=== PATIENT | female | born 1960 | race African-American/Black ===

== ENCOUNTER 2020-10-18 09:23 | Outpatient (CLI) | payer MEDICARE, OTHER ==
[~2020-10-18 09:23] MED LIST: Iopamidol 370 76% 100 ML VIAL ONE
== END 2020-10-18 09:24 | disposition home or self-care (01) ==
LOC: CT 09:23
PROVIDERS: ATTEND Family Medicine
DX: R10.12 Left upper quadrant pain (principal); R10.32 Left lower quadrant pain; R91.1 Solitary pulmonary nodule; M79.605 Pain in left leg; M79.89 Other specified soft tissue disorders
CPT/HCPCS: 71250; 74177; 82565; Q9967

== ENCOUNTER 2023-05-03 12:29 | Emergency (ER) | payer MEDICARE, OTHER ==
[2023-05-03 13:16] LABS: #Basophils Less than 0.03 10x3/uL (0.0-0.2); %Basophils 0.4 % (0.0-1.0); %Eosinophils 0.7 % (0.0-10.0); %Lymphocytes 39.7 % (21.0-51.0); %Monocytes 7.1 % (0.0-10.0); %Neutrophils 51.9 % (42.0-75.0); Hematocrit 47.4 % (36.0-47.0); Hemoglobin 15.3 g/dL (12.0-16.0); Mean Corpuscular HGB CONC 32.3 g/dL (32.0-36.0); Mean Corpuscular Hemoglobin 31.7 pg (27.0-31.0); Mean Corpuscular Volume 98.3 fl (78.0-98.0); Mean Platelet Volume 11.5 fL (7.4-10.4); Platelet Count 234 10x3/uL (130-400); RBC Distribution Width 12.9 % (11.5-14.5); Red Blood Cell (RBC) Count 4.82 mill/uL (4.20-5.40)
[2023-05-03 13:33] LABS: ALT (SGPT) 12 U/L (8-55); AST (SGOT) 17 U/L (5-34); Albumin 4.5 g/dL (3.4-4.8); Alkaline Phosphatase 73 U/L (40-110); Anion Gap 13 mmol/L (10-20); BUN (Urea Nitrogen) 9 mg/dL (9.8-20.1); Bilirubin, Total 0.3 mg/dL (0.2-1.2); Calc. Creatinine Clearance 0 mL/min (70-130); Calcium 9.9 mg/dL (7.8-10.44); Carbon Dioxide 26 mmol/L (23-31); Chloride 106 mmol/L (98-107); Estimated GFR 81; Globulin 4.1 g/dL (2.4-3.5); Glucose 90 mg/dL (80-115); Lipase 9 U/L (8-78); Potassium 3.6 mmol/L (3.5-5.1); Protein, Total 8.6 g/dL (5.8-8.1); Sodium 141 mmol/L (136-145)
[2023-05-03 13:38] LABS: Troponin I Less than 0.010 ng/mL (< 0.028)
== END 2023-05-03 15:32 | disposition home or self-care (01) ==
LOC: ERS 12:29
DX: R07.89 Other chest pain (principal); K29.70 Gastritis, unspecified, without bleeding; F15.980 Other stimulant use, unspecified with stimulant-induced anxiety disorder; F17.210 Nicotine dependence, cigarettes, uncomplicated
CPT/HCPCS: 36415; 71045; 80053; 83690; 84484; 85025; 93005